=== PATIENT | male | born 1955 | race Caucasian/White ===

== ENCOUNTER 2023-07-13 13:51 | Emergency (ER) | payer MEDICARE, MEDICAID, SELFPAY ==
--- NOTE | ~2023-07-13 | XR_ITS ---
EXAMINATION: XR forearm LT 2V DATE: 07/13/2023 14:45 INDICATION: Left forearm pain and laceration status post fall from ladder TECHNIQUE: AP an lateral views of the left forearm were obtained. COMPARISON: none FINDINGS: Alignment is normal. No fracture. 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 Remaini ng joint spaces appear relatively preserved. No elbow joint effusion. The contour to the skin at the dorsal aspect of the proximal forearm consistent with provided history of lacerations. No radiopaque foreign bodies. IMPRESSION: 1. No acute osseous abnormality or radiopaque foreign bodies. Reviewed, dictated and finalized at location A.
[2023-07-13 14:14] VITALS: BP 151/90; PULSE 84; RESP 19; TEMP 37.3; O2SAT 96
[2023-07-13] MEDS: TETANUS,DIPHTHERIA,AC PERTUSSIS ADULT 0.5 ML (ADACEL) IM (14:59)
[2023-07-13] MEDS: KETOROLAC (*BKC) 60 MG/2 ML VIAL IM (14:59)
--- NOTE | 2023-07-13 15:23 | ED.FALL ---
HPI - Fall General Chief Complaint: Fall Stated Complaint: Fall/Lac L arm Time Seen by Provider: 07/13/23 13:57 Source: patient Mode of arrival: ambulatory History of Present Illness HPI Narrative: Patient is a 68-year-old male with significant past medical history presents today for a fall. He fell off a ladder and a laceration to his left arm his forearm. He also had his left leg injury and bruised. He does not want to get x-ray of his leg but agrees to get an x-ray of his forearm. He denies any loss consciousness or hitting his head. complaint: fall Onset (ago): hour(s) Fall from: from height (distance) (5 feet) Fall witnessed: yes, by family Place fall occurred: home Loss of consciousness: none Symptoms prior to fall: none Location of injury: other (left forearm) Location of injury - extremities: Left: forearm Severity: mild Severity scale (1-10): 2 Quality: sharp Associated symptoms (after fall): denies Related Data Allergies Allergy/AdvReac Type Severity Reaction Status Date / Time No Known Allergies Allergy Verified 07/13/23 14:53 Review of Systems Review of Systems: All systems reviewed & are unremarkable except as noted in HPI and below Constitutional: Constitutional: Reports no additional constitutional complaints Eyes: Eyes: Reports no additional eye complaints ENT: Reports system reviewed and no additional complaints, except as documented Cardiovascular: Cardiovascular: Reports no additional cardiovascular complaints Respiratory: Respiratory: Reports no additional respiratory complaints Gastrointestinal: Gastrointestinal: Reports no additional gastrointestinal complaints Genitourinary: Genitourinary: Reports no additional male genitourinary complaints Musculoskeletal: Musculoskeletal: Reports as per HPI Integumentary/Breasts: Skin/Breast: Reports as per HPI Psychiatric: Psychiatric: Reports no additional psychiatric complaints Endocrine: Endocrine: Reports no additional endocrine complaints Exam Const: General: healthy appearing Nutritional Appearance: well nourished Orientation/consciousness: patient oriented x3 Limitations: no limitations HENMT: Head: normal to inspection Ears: external ears normal Eyes: Conjunctivae: conjunctivae normal Pupils: Equal, round and reactive pupils present EOM: EOMs intact bilaterally Neck: Neck: normal visual inspection Chest: Chest palpation & inspection: normal inspection of the chest Resp: Effort & Inspection: normal respiratory effort Auscultation: clear to auscultation bilaterally Cardio: Rate: regular rate Rhythm: regular rhythm GI: Auscultation: normal bowel sounds Back/Spine/Pelvis: Back: no CVA tenderness Skin: Wounds: wounds noted ( 5 x 5 cm laceration to left forearm) Neuro: General: patient oriented x3 Extrem: Other: noted above Course Vital Signs Vital signs: Vital Signs Temperature 99.1 F 07/13/23 14:14 Pulse Rate 84 07/13/23 14:14 Respiratory Rate 19 07/13/23 14:14 Blood Pressure 151/90 H 07/13/23 14:14 Pulse Oximetry 96 07/13/23 14:14 Oxygen Delivery Room Air 07/13/23 14:14 Temperature 99.1 F 07/13/23 14:14 Pulse Rate 84 07/13/23 14:14 Respiratory Rate 19 07/13/23 14:14 Blood Pressure 151/90 H 07/13/23 14:14 Pulse Oximetry 96 07/13/23 14:14 Oxygen Delivery Room Air 07/13/23 14:14 Discharge Plan Discharge Clinical Impression: Laceration of forearm, Fall Patient Disposition: Home, Self-Care Condition: Stable Instructions: Laceration (ED) Additional Instructions: follow-up in 7-10 days for suture removal Prescriptions: New doxycycline hyclate 100 mg tablet 100 mg PO BID Qty: 20 0RF doxycycline hyclate 100 mg tablet 100 mg PO BID Qty: 20 0RF Follow-up/Referrals: UNKNOWN,DOCTOR [Primary Care Provider] -
[2023-07-13 15:41] VITALS: BP 148/88; PULSE 80; RESP 20; TEMP 36.8; O2SAT 96
== END 2023-07-13 15:43 | disposition home or self-care (01) ==
PROVIDERS: Emergency Provider Family Medicine
DX: S51.812A Laceration without foreign body of left forearm, initial encounter (principal); Z23 Encounter for immunization; W11.XXXA Fall on and from ladder, initial encounter; Y92.009 Unspecified place in unspecified non-institutional (private) residence as the place of occurrence of the external cause
CPT/HCPCS: 12002; 73090; 90471; 90715; 96372; 99283; J1885